=== PATIENT | female | born 1960 | race Caucasian/White ===

== ENCOUNTER → 2022-12-21 | Outpatient (CLI) | payer OTHER, MEDICARE ==
[~2022-12-21] MED LIST: ALBUTEROL INH; ALBUTEROL0.09 MG/A2 IH; ATIVAN0.5 MG PO; BENADRYL25 MG; CILOXAN 5 ML5 M1 OP; CIPRODEX 0.3%-7.5 M1; CUBICIN500 MG IV; EFFEXOR XR75 M1 PO; FLAGYL I.V.500 MG IV; HYDROCODONE BIT1 T11 PO; HYOMAX0.125 MG; K-DUR 20MEQ20 MEQ PO; LIPITOR10 MG PO; MAXALT10 MG PO; MIGRAINE MED PO; OXYCODONE5 MG PO; PRILOSEC20 MG PO; SYMBICORT1 AE1 INH; THERAPEUTIC VIT1 CAP PO; VANCOCIN1000 MG/25 IV; VICODIN 5/500 505 MG PO; VITAMIN B1100 MCG/ML IM; ZOFRAN ODT4 MG SL; [UNRECOGNIZED DRUG - OTHER]
== END | disposition home or self-care (01) ==
LOC: LAB 00:40 → MRI 00:40
PROVIDERS: ATTEND Specialist
DX: I67.82 Cerebral ischemia (principal); R90.82 White matter disease, unspecified; R42 Dizziness and giddiness; Z85.3 Personal history of malignant neoplasm of breast

== ENCOUNTER → 2023-07-14 | Outpatient (CLI) | payer OTHER, MEDICARE | END | disposition home or self-care (01) | LOC: RESCLI 01:31 | PROVIDERS: ATTEND Student in an Organized Health Care Education/Training Program | DX: E11.9 Type 2 diabetes mellitus without complications (principal); F41.9 Anxiety disorder, unspecified; C50.919 Malignant neoplasm of unspecified site of unspecified female breast; K21.9 Gastro-esophageal reflux disease without esophagitis; E78.00 Pure hypercholesterolemia, unspecified; I10 Essential (primary) hypertension; T78.40XA Allergy, unspecified, initial encounter; Z88.8 Allergy status to other drugs, medicaments and biological substances; Z79.899 Other long term (current) drug therapy; Z98.890 Other specified postprocedural states; X58.XXXA Exposure to other specified factors, initial encounter ==